=== PATIENT | male | born 1965 | race Caucasian/White ===

== ENCOUNTER 2019-06-23 10:59 | Inpatient (IN) | payer MEDICAID ==
[~2019-06-23] VITALS: Ht 182.9 cm; Wt 84.1 kg
[2019-06-23 12:35] LABS: BASOPHILS # (AUTO) 0.1 X10'3 (0-0.2); BASOPHILS % (AUTO) 0.6 % (0-1); EOSINOPHILS # (AUTO) 0.1 X10'3 (0-0.9); EOSINOPHILS % (AUTO) 1.3 % (0-6); HEMATOCRIT 46.8 % (42.0-52.0); HEMOGLOBIN 15.6 g/dl (14.0-17.9); LYMPHOCYTES # (AUTO) 1.5 X10'3 (1.1-4.8); LYMPHOCYTES % (AUTO) 16.8 % (21-51); MEAN CORPUSCULAR HEMOGLOBIN 32.2 PG (27.0-31.0); MEAN CORPUSCULAR HGB CONC 33.4 g/dL (33.0-36.5); MEAN CORPUSCULAR VOLUME 96.5 FL (78-98); MONOCYTES # (AUTO) 1.1 X10'3 (0-0.9); MONOCYTES % (AUTO) 13.1 % (2-12); NEUTROPHILS % (AUTO) 68.2 % (42-75); PLATELET COUNT 203 X10'3 (140-440); RED BLOOD COUNT 4.85 X10'6 (4.70-6.10); RED CELL DISTRIBUTION WIDTH 15.8 % (11.5-14.5); WHITE BLOOD COUNT 8.8 X10'3 (4.5-11.0)
[2019-06-23 12:47] LABS: PARTIAL THROMBOPLASTIN TIME 26 SECONDS (22-32)
[2019-06-23 12:52] LABS: ALANINE AMINOTRANSFERASE 120 U/L (12-78); ALBUMIN 3.4 G/DL (3.4-5.0); ALBUMIN/GLOBULIN RATIO 1.1 (1.1-1.5); ALKALINE PHOSPHATASE 163 IU/L (46-116); ANION GAP 8 (8-16); ASPARTATE AMINO TRANSFERASE 111 U/L (10-37); BILIRUBIN,TOTAL 0.9 MG/DL (0.1-1.0); BLOOD UREA NITROGEN 28 MG/DL (7-18); BUN/CREATININE RATIO 20.9 (5.4-32.0); CALCIUM 8.8 MG/DL (8.5-10.1); CHLORIDE 107 MMOL/L (99-107); CREATININE 1.34 MG/DL (0.60-1.10); GLUCOSE 93 MG/DL (70-104); POTASSIUM 4.2 MMOL/L (3.5-5.1); SODIUM 144 MMOL/L (135-145); TOTAL CARBON DIOXIDE 29.3 MMOL/L (24-32); TOTAL PROTEIN 6.4 G/DL (6.4-8.2); eGFR 55 ML/MIN
[2019-06-23 12:55] LABS: URINE AMPHETAMINE SCREEN POSITIVE (Neg); URINE BARBITUATE SCREEN NEGATIVE (Neg); URINE BENZODIAZEPINES SCREEN NEGATIVE (Neg); URINE CANNABINOID SCREEN NEGATIVE (Neg); URINE COCAINE SCREEN NEGATIVE (Neg); URINE METHADONE SCREEN NEGATIVE (Neg); URINE OPIATE SCREEN NEGATIVE (Neg); URINE PHENCYCLIDINE SCREEN NEGATIVE (Neg)
[2019-06-23 12:59] LABS: ETHANOL < 0.010 GM/DL (0.0-0.010); MAGNESIUM 2.1 MG/DL (1.5-2.4); PHOSPHORUS 4.4 MG/DL (2.3-4.5)
[2019-06-23] MEDS ORDERED: potassium Cl 20 mEq SR tablet PO STA (13:32)
[2019-06-23] MEDS ORDERED: furosemide 10 MG/1 ML 10ml inj IV ONE (13:35)
[2019-06-23] MEDS ORDERED: furosemide 40mg/4ml inj IV ONE (13:40)
[2019-06-23] MEDS ORDERED: NO HOME MEDS (13:42)
[2019-06-23] MEDS ORDERED: ondansetron/PF 4mg/2ml inj IV PRN (14:50)
[2019-06-23] MEDS ORDERED: mag hydrox/Alum hydrox/simeth 30ml oral suspension PO PRN (14:50)
[2019-06-23] MEDS ORDERED: magnesium hydroxide 30ml (MOM) UD suspension PO PRN (14:50)
[2019-06-23] MEDS ORDERED: acetaminophen 325mg tablet PO PRN (14:50)
[2019-06-23 15:00] VITALS: BP 140/112
[2019-06-23] MEDS ORDERED: dextrose 50%-water 50ml dispensing syringe IV PRN (16:25)
[2019-06-23] MEDS ORDERED: thiamine 100mg/ml 2ml inj. IV ONE (16:25)
[2019-06-23] MEDS ORDERED: thiamine inj. 100 MG in normal saline 100ml IV soln 99 ML IV ONE (16:30)
[2019-06-23 18:00] VITALS: BP 137/99
--- NOTE | 2019-06-23 18:30 | NUR ---
Patient in room PCU 3017. I have received report from Katlyn Reyes RN and had the opportunity to ask questions and assume patient care.
[2019-06-23] MEDS: heparin, porcine 5000 units/ml vial SQ SCH (19:41)
[2019-06-23] MEDS: furosemide 10 MG/1 ML 10ml inj IV SCH (19:42)
[2019-06-23 22:00] VITALS: BP 131/104
[2019-06-24 00:52] LABS: BASOPHILS # (AUTO) 0.1 X10'3 (0-0.2); BASOPHILS % (AUTO) 1.4 % (0-1); EOSINOPHILS # (AUTO) 0.2 X10'3 (0-0.9); HEMATOCRIT 44.1 % (42.0-52.0); HEMOGLOBIN 14.9 g/dl (14.0-17.9); LYMPHOCYTES # (AUTO) 1.8 X10'3 (1.1-4.8); LYMPHOCYTES % (AUTO) 25.1 % (21-51); MEAN CORPUSCULAR HEMOGLOBIN 32.8 PG (27.0-31.0); MEAN CORPUSCULAR HGB CONC 33.7 g/dL (33.0-36.5); MEAN CORPUSCULAR VOLUME 97.3 FL (78-98); MEAN PLATELET VOLUME 9.4 FL (7.4-10.4); MONOCYTES # (AUTO) 0.9 X10'3 (0-0.9); MONOCYTES % (AUTO) 12.7 % (2-12); NEUTROPHILS # (AUTO) 4.2 X10'3 (1.8-7.7); NEUTROPHILS % (AUTO) 57.8 % (42-75); PLATELET COUNT 191 X10'3 (140-440); RED BLOOD COUNT 4.53 X10'6 (4.70-6.10); RED CELL DISTRIBUTION WIDTH 15.4 % (11.5-14.5); WHITE BLOOD COUNT 7.2 X10'3 (4.5-11.0)
[2019-06-24 00:53] LABS: ALANINE AMINOTRANSFERASE 106 U/L (12-78); ALKALINE PHOSPHATASE 142 IU/L (46-116); ANION GAP 7 (8-16); ASPARTATE AMINO TRANSFERASE 74 U/L (10-37); BILIRUBIN,TOTAL 0.8 MG/DL (0.1-1.0); BLOOD UREA NITROGEN 31 MG/DL (7-18); BUN/CREATININE RATIO 22.3 (5.4-32.0); CALCIUM 8.5 MG/DL (8.5-10.1); CHLORIDE 104 MMOL/L (99-107); CREATININE 1.39 MG/DL (0.60-1.10); GLUCOSE 144 MG/DL (70-104); POTASSIUM 3.5 MMOL/L (3.5-5.1); SODIUM 142 MMOL/L (135-145); TOTAL CARBON DIOXIDE 31.5 MMOL/L (24-32); TOTAL PROTEIN 5.9 G/DL (6.4-8.2); eGFR 53 ML/MIN
[2019-06-24 02:00] VITALS: BP 128/96
[2019-06-24] MEDS: LORazepam 2 mg/ml vial IV PRN ×2 (02:49→20:24)
--- NOTE | 2019-06-24 06:14 | NUR ---
Problems reprioritized. Patient report given, questions answered & plan of care reviewed with Miroslava OCONNELL.
--- NOTE | 2019-06-24 06:14 | NUR ---
Patient in room PCU 3017. I have received report from KOURTNEY Rees and had the opportunity to ask questions and assume patient care.
[2019-06-24 07:00] VITALS: BP 124/95
[2019-06-24] MEDS: folic acid 1mg tablet PO SCH (08:54)
[2019-06-24] MEDS: heparin, porcine 5000 units/ml vial SQ SCH ×2 (08:54→20:17)
[2019-06-24] MEDS: thiamine 100mg tablet PO SCH (08:54)
[2019-06-24] MEDS: furosemide 10 MG/1 ML 10ml inj IV SCH ×2 (08:57→20:17)
[2019-06-24] MEDS ORDERED: pneumococcal 23-VAL P-sac vacc 25 mcg/0.5ml vial IMVAC ONE (10:00)
[2019-06-24 17:00] VITALS: BP 116/87
[2019-06-24 18:00] VITALS: BP 93/66
--- NOTE | 2019-06-24 18:35 | NUR ---
Patient in room PCU 3017. I have received report from KOURTNEY Rowley and had the opportunity to ask questions and assume patient care.
--- NOTE | 2019-06-24 18:54 | NUR ---
Problems reprioritized. Patient report given, questions answered & plan of care reviewed with KOURTNEY Molina.
[2019-06-24] MEDS: VANCOmycin 1250MG/NS 250ml Bag 250 ML IV SCH (20:13)
[2019-06-24] MEDS: morphine 2 MG/ML inj. syringe IV PRN (20:19)
[2019-06-24] MEDS: metoprolol tartrate 12.5mg (1/2 tablet) PO SCH (20:51)
[2019-06-24 22:00] VITALS: BP 99/70
--- NOTE | 2019-06-24 23:02 | NUR ---
PAGER ID: [phone] MESSAGE: Chuck Tee in [id number] had a 4 beat run of Vtach. Usually he is Sinus Tach. Vital signs stable. KOURTNEY Molina [phone]
[2019-06-25] VITALS (7 sets, daily range): BP systolic 94–133; BP diastolic 65–94
--- NOTE | 2019-06-25 05:58 | NUR ---
Student Medication Administration: For this medication-pass time frame, all medication were reviewed, dispensed, administered and documented per hospital policy by Blanca COLLINS. Student documentation: I have reviewed and agree with all interventions, assessments performed and documented by Blanca COLLINS.
[2019-06-25 06:24] LABS: BASOPHILS # (AUTO) 0.1 X10'3 (0-0.2); BASOPHILS % (AUTO) 0.6 % (0-1); EOSINOPHILS # (AUTO) 0.2 X10'3 (0-0.9); EOSINOPHILS % (AUTO) 2.3 % (0-6); HEMATOCRIT 46.5 % (42.0-52.0); HEMOGLOBIN 15.5 g/dl (14.0-17.9); LYMPHOCYTES # (AUTO) 1.9 X10'3 (1.1-4.8); LYMPHOCYTES % (AUTO) 21.5 % (21-51); MEAN CORPUSCULAR HEMOGLOBIN 32.2 PG (27.0-31.0); MEAN CORPUSCULAR HGB CONC 33.4 g/dL (33.0-36.5); MEAN CORPUSCULAR VOLUME 96.5 FL (78-98); MONOCYTES # (AUTO) 1.3 X10'3 (0-0.9); MONOCYTES % (AUTO) 14.5 % (2-12); NEUTROPHILS # (AUTO) 5.4 X10'3 (1.8-7.7); NEUTROPHILS % (AUTO) 61.1 % (42-75); PLATELET COUNT 203 X10'3 (140-440); RED BLOOD COUNT 4.82 X10'6 (4.70-6.10); RED CELL DISTRIBUTION WIDTH 15.7 % (11.5-14.5); WHITE BLOOD COUNT 8.9 X10'3 (4.5-11.0)
--- NOTE | 2019-06-25 06:30 | NUR ---
Patient in room PCU 3017. I have received report from KOURTNEY BENNETT and had the opportunity to ask questions and assume patient care.
[2019-06-25 06:35] LABS: ALANINE AMINOTRANSFERASE 80 U/L (12-78); ALBUMIN 2.9 G/DL (3.4-5.0); ALBUMIN/GLOBULIN RATIO 0.9 (1.1-1.5); ALKALINE PHOSPHATASE 120 IU/L (46-116); ANION GAP 7 (8-16); ASPARTATE AMINO TRANSFERASE 47 U/L (10-37); BILIRUBIN,TOTAL 0.9 MG/DL (0.1-1.0); BLOOD UREA NITROGEN 26 MG/DL (7-18); BUN/CREATININE RATIO 17.8 (5.4-32.0); CALCIUM 8.6 MG/DL (8.5-10.1); CHLORIDE 103 MMOL/L (99-107); CREATININE 1.46 MG/DL (0.60-1.10); GLUCOSE 98 MG/DL (70-104); POTASSIUM 3.8 MMOL/L (3.5-5.1); SODIUM 142 MMOL/L (135-145); TOTAL CARBON DIOXIDE 32.2 MMOL/L (24-32); eGFR 50 ML/MIN
--- NOTE | 2019-06-25 06:37 | NUR ---
Problems reprioritized. Patient report given, questions answered & plan of care reviewed with KOURTNEY Kathleen.
[2019-06-25] MEDS: furosemide 10 MG/1 ML 10ml inj IV SCH ×2 (08:50→20:40)
[2019-06-25] MEDS: VANCOmycin 1250MG/NS 250ml Bag 250 ML IV SCH (08:56)
[2019-06-25] MEDS: aspirin 81mg tablet.DR PO SCH (08:56)
[2019-06-25] MEDS: folic acid 1mg tablet PO SCH (08:56)
[2019-06-25] MEDS: thiamine 100mg tablet PO SCH (08:58)
[2019-06-25] MEDS: metoprolol tartrate 12.5mg (1/2 tablet) PO SCH ×2 (08:58→20:40)
[2019-06-25] MEDS: heparin, porcine 5000 units/ml vial SQ SCH ×2 (08:59→20:28)
[2019-06-25] MEDS: lisinopril 10 MG tablet PO SCH (08:59)
[2019-06-25] MEDS: morphine 2 MG/ML inj. syringe IV PRN ×3 (09:05→19:40)
[2019-06-25] MEDS ORDERED: LORazepam 1 MG tablet PO PRN (16:25)
[2019-06-25] MEDS ORDERED: LORazepam 2 mg/ml vial IV PRN (16:25)
--- NOTE | 2019-06-25 18:19 | NUR ---
Problems reprioritized. Patient report given, questions answered & plan of care reviewed with KOURTNEY MOELLER.
[2019-06-26 02:00] VITALS: BP 115/88
[2019-06-26 06:00] VITALS: BP 111/78
[2019-06-26] MEDS ORDERED: VANCOMYCIN LEVEL IV ONE (07:30)
[2019-06-26 08:22] LABS: BASOPHILS # (AUTO) 0.2 X10'3 (0-0.2); EOSINOPHILS # (AUTO) 0.3 X10'3 (0-0.9); EOSINOPHILS % (AUTO) 2.9 % (0-6); HEMATOCRIT 46.3 % (42.0-52.0); HEMOGLOBIN 15.6 g/dl (14.0-17.9); LYMPHOCYTES # (AUTO) 2.1 X10'3 (1.1-4.8); LYMPHOCYTES % (AUTO) 23.5 % (21-51); MEAN CORPUSCULAR HEMOGLOBIN 32.4 PG (27.0-31.0); MEAN CORPUSCULAR HGB CONC 33.6 g/dL (33.0-36.5); MEAN CORPUSCULAR VOLUME 96.3 FL (78-98); MEAN PLATELET VOLUME 8.5 FL (7.4-10.4); MONOCYTES # (AUTO) 1.4 X10'3 (0-0.9); MONOCYTES % (AUTO) 15.7 % (2-12); NEUTROPHILS % (AUTO) 55.9 % (42-75); PLATELET COUNT 208 X10'3 (140-440); RED CELL DISTRIBUTION WIDTH 15.5 % (11.5-14.5)
[2019-06-26 08:40] LABS: ALANINE AMINOTRANSFERASE 60 U/L (12-78); ALBUMIN 2.8 G/DL (3.4-5.0); ALBUMIN/GLOBULIN RATIO 0.9 (1.1-1.5); ALKALINE PHOSPHATASE 115 IU/L (46-116); ANION GAP 3 (8-16); ASPARTATE AMINO TRANSFERASE 35 U/L (10-37); BILIRUBIN,TOTAL 0.8 MG/DL (0.1-1.0); BLOOD UREA NITROGEN 27 MG/DL (7-18); BUN/CREATININE RATIO 19.1 (5.4-32.0); CALCIUM 8.6 MG/DL (8.5-10.1); CHLORIDE 103 MMOL/L (99-107); CREATININE 1.41 MG/DL (0.60-1.10); GLUCOSE 97 MG/DL (70-104); SODIUM 138 MMOL/L (135-145); TOTAL CARBON DIOXIDE 32.2 MMOL/L (24-32); TOTAL PROTEIN 5.9 G/DL (6.4-8.2); eGFR 52 ML/MIN
[2019-06-26] MEDS: furosemide 10 MG/1 ML 10ml inj IV SCH (08:54)
[2019-06-26] MEDS: folic acid 1mg tablet PO SCH (08:55)
[2019-06-26] MEDS: aspirin 81mg tablet.DR PO SCH (08:55)
[2019-06-26] MEDS: thiamine 100mg tablet PO SCH (08:56)
[2019-06-26] MEDS: metoprolol tartrate 12.5mg (1/2 tablet) PO SCH ×2 (08:56→20:00)
[2019-06-26] MEDS: lisinopril 10 MG tablet PO SCH (08:57)
[2019-06-26] MEDS: heparin, porcine 5000 units/ml vial SQ SCH ×2 (08:58→20:38)
[2019-06-26 09:19] LABS: TOTAL CELLS COUNTED 100
[2019-06-26 09:22] LABS: PLATELET ESTIMATE NORMAL; TOXIC GRANULATION 1+
[2019-06-26 09:23] LABS: POLYCHROMASIA FEW
[2019-06-26 11:00] VITALS: BP 105/66
[2019-06-26] MEDS: morphine 2 MG/ML inj. syringe IV PRN (11:26)
--- NOTE | 2019-06-26 14:59 | NUR ---
PAGER ID: [phone] MESSAGE: DR. JEROME, 9746G/LILIANE, HAS BEEN C/O LEVEL 7/10 BACK PAIN. HAVE BEEN GIVING IV MORPHINE. IT WORKS, BUT HE DOES NOT LIKE THE WAY IT MAKES HIM FEEL. CAN WE PLEASE HAVE AN ORDER FOR PO PAIN MEDICATION? JANELL JENKINS [id number].
[2019-06-26 15:00] VITALS: BP 94/67
--- NOTE | 2019-06-26 16:10 | NUR ---
PAGER ID: [phone] MESSAGE: DR. JEROME, 1250Q/LILIANE, CAN I PLEASE HAVE AN ORDER FOR PO PAIN MEDICATION FOR 11/23 BACK PAIN? JANELL JENKINS [phone].
[2019-06-26] MEDS: HYDROcodone/acetaminophen 5mg/325mg tablet PO PRN (17:04)
[2019-06-26 18:00] VITALS: BP 96/73
--- NOTE | 2019-06-26 18:14 | NUR ---
Problems reprioritized. Patient report given, questions answered & plan of care reviewed with KOURTNEY HERRERA.
--- NOTE | 2019-06-26 19:13 | NUR ---
Patient in room PCU 3017. I have received report from Hever OCONNELL and had the opportunity to ask questions and assume patient care.
[2019-06-26 22:00] VITALS: BP 111/75
[2019-06-27 02:00] VITALS: BP 110/80
[2019-06-27 04:50] LABS: BASOPHILS # (AUTO) 0.1 X10'3 (0-0.2); BASOPHILS % (AUTO) 0.8 % (0-1); EOSINOPHILS # (AUTO) 0.2 X10'3 (0-0.9); EOSINOPHILS % (AUTO) 3.5 % (0-6); HEMATOCRIT 46.2 % (42.0-52.0); HEMOGLOBIN 15.4 g/dl (14.0-17.9); LYMPHOCYTES # (AUTO) 2.1 X10'3 (1.1-4.8); LYMPHOCYTES % (AUTO) 29.4 % (21-51); MEAN CORPUSCULAR HEMOGLOBIN 32.5 PG (27.0-31.0); MEAN CORPUSCULAR HGB CONC 33.5 g/dL (33.0-36.5); MEAN CORPUSCULAR VOLUME 97.1 FL (78-98); MEAN PLATELET VOLUME 8.5 FL (7.4-10.4); MONOCYTES # (AUTO) 1.1 X10'3 (0-0.9); NEUTROPHILS # (AUTO) 3.5 X10'3 (1.8-7.7); NEUTROPHILS % (AUTO) 50.3 % (42-75); PLATELET COUNT 218 X10'3 (140-440); RED BLOOD COUNT 4.76 X10'6 (4.70-6.10); RED CELL DISTRIBUTION WIDTH 15.2 % (11.5-14.5)
[2019-06-27 05:23] LABS: ALANINE AMINOTRANSFERASE 59 U/L (12-78); ALBUMIN 2.9 G/DL (3.4-5.0); ALBUMIN/GLOBULIN RATIO 0.9 (1.1-1.5); ALKALINE PHOSPHATASE 107 IU/L (46-116); ANION GAP 5 (8-16); ASPARTATE AMINO TRANSFERASE 38 U/L (10-37); BILIRUBIN,TOTAL 0.5 MG/DL (0.1-1.0); BLOOD UREA NITROGEN 31 MG/DL (7-18); BUN/CREATININE RATIO 19.9 (5.4-32.0); CHLORIDE 103 MMOL/L (99-107); CHOL/HDL RATIO 3.9 (0.00-4.99); CHOLESTEROL 148 MG/DL (0-200); CREATININE 1.56 MG/DL (0.60-1.10); GLUCOSE 97 MG/DL (70-104); HDL CHOLESTEROL 38 MG/DL (35-60); LDL CHOLESTEROL 94 MG/DL (50-100); POTASSIUM 4.2 MMOL/L (3.5-5.1); SODIUM 138 MMOL/L (135-145); TOTAL CARBON DIOXIDE 30.2 MMOL/L (24-32); TOTAL PROTEIN 6.2 G/DL (6.4-8.2); TRIGLYCERIDES 126 MG/DL (20-135); eGFR 46 ML/MIN
[2019-06-27 06:00] VITALS: BP 101/78
--- NOTE | 2019-06-27 06:11 | NUR ---
Problems reprioritized. Patient report given, questions answered & plan of care reviewed with Hever RN.
[2019-06-27 06:20] VITALS: BP 101/78
--- NOTE | 2019-06-27 06:30 | NUR ---
Patient in room PCU 3017. I have received report from KOURTNEY HERRERA and had the opportunity to ask questions and assume patient care.
[2019-06-27] MEDS: folic acid 1mg tablet PO SCH (07:54)
[2019-06-27] MEDS: aspirin 81mg tablet.DR PO SCH (07:54)
[2019-06-27] MEDS: metoprolol tartrate 12.5mg (1/2 tablet) PO SCH (07:55)
[2019-06-27] MEDS: thiamine 100mg tablet PO SCH (07:56)
[2019-06-27] MEDS: lisinopril 10 MG tablet PO SCH (07:56)
[2019-06-27] MEDS: HYDROcodone/acetaminophen 5mg/325mg tablet PO PRN ×2 (07:57→17:25)
[2019-06-27] MEDS: heparin, porcine 5000 units/ml vial SQ SCH (07:58)
[2019-06-27] MEDS ORDERED: furosemide 20MG tablet PO SCH (08:00)
[2019-06-27 08:09] LABS: HBSAG SCREEN Negative (Negative); HEP A AB, IGM Negative (Negative); HEP B CORE AB, IGM Negative (Negative); HEPATITIS C ANTIBODY <0.1 s/co ratio (0.0-0.9)
[2019-06-27 11:00] VITALS: BP 112/73
[2019-06-27] MEDS ORDERED: thiamine tablet PO (14:49)
[2019-06-27] MEDS ORDERED: folic acid tablet PO (14:49)
[2019-06-27] MEDS ORDERED: ASPI-1071 PO (14:49)
[2019-06-27] MEDS ORDERED: FURO20TA4 PO (14:49)
[2019-06-27] MEDS ORDERED: METO25TA6 PO (14:49)
[2019-06-27] MEDS ORDERED: LISI10TA4 PO (14:49)
[2019-06-27] MEDS ORDERED: LORazepam 2 mg/ml vial IV PRN (16:25)
[2019-06-27] MEDS ORDERED: LORazepam 1 MG tablet PO PRN (16:25)
--- NOTE | 2019-06-27 18:28 | NUR ---
Problems reprioritized. Patient report given, questions answered & plan of care reviewed with KOURTNEY HERRERA.
[2019-06-27 18:30] VITALS: BP 126/88
--- NOTE | 2019-06-27 19:45 | NUR ---
pt has been discharged, pt has left with his life vest and be educated about the importance of this device due to his underlying heart conditions, in addition all discharge paperwork has been discussed with pt, pt walked down out of the unit on his own with his belongings to meet his ride in the parking lot
== END 2019-06-27 19:47 | disposition home or self-care (01) | DRG 190 ==
LOC: ER 11:00 → ED HOLD 14:46 → PCU 3S 15:44
PROVIDERS: ADMIT Family Medicine; ATTEND Family Medicine
PROC: 3E0234Z Introduction of Serum, Toxoid and Vaccine into Muscle, Percutaneous Approach (ICD-10-PCS; principal; 2019-06-24)
DX: I21.A1 Myocardial infarction type 2 (principal); I50.23 Acute on chronic systolic (congestive) heart failure; N17.9 Acute kidney failure, unspecified; I27.21 Secondary pulmonary arterial hypertension; I42.7 Cardiomyopathy due to drug and external agent; K76.6 Portal hypertension; R18.8 Other ascites; F10.20 Alcohol dependence, uncomplicated; F15.10 Other stimulant abuse, uncomplicated; K59.00 Constipation, unspecified; N18.9 Chronic kidney disease, unspecified; Z87.891 Personal history of nicotine dependence; Z23 Encounter for immunization
CPT/HCPCS: 36415; 71045; 74176; 80053; 80061; 80074; 80305; 80320; 83605; 83735; 83880; 84100; 84484; 85025; 85610; 85730; 87040; 87081; 93005; 93306; 93975; 96365; 99285; G0378; J1644; J1940; J2060; J2270; J3370; J3411